=== PATIENT | female | born 1940 | race Caucasian/White ===

== ENCOUNTER 2017-06-15 19:18 | Inpatient (IN) ==
[2017-06-15 20:29] LABS: ALBUMIN 3.2 g/dL (3.5-5.0); CALCIUM 8.1 mg/dL (8.8-10.2); TOTAL BILIRUBIN 0.4 mg/dL (0.20-1.00); TOTAL PROTEIN 6.6 g/dL (6.3-8.3)
[2017-06-15 20:40] LABS: BASO% 0.1 % (0.0-0.8); EOS# 0.01 X1000 (0.0-0.7); EOS% 0.1 % (0.0-10.0); HEMATOCRIT 40.8 % (37.0-47.0); HEMOGLOBIN 13.3 g/dL (12.0-16.0); IMM GRAN# 0.02 X1000 (0.0-0.04); IMM GRAN% 0.2 % (0.0-0.5); LYMPH# 1.31 X1000 (1.2-3.4); LYMPH% 12.7 % (20.5-51.1); MANUAL DIFF NEEDED? NO; MCH 32.2 PG (27-31); MCHC 32.6 g/dL (33-37); MCV 98.8 FL (81-99); MONO# 0.69 X1000 (0.11-0.59); MONO% 6.7 % (1.7-9.3); MPV 10.6 FL (7.4-10.4); NEUT% 80.2 % (42.2-75.2); PLT 185 X1000 (130-400); RBC 4.13 XMIL (4.2-5.4)
[2017-06-15 21:17] LABS: BILIRUBIN URINE NEGATIVE (NEGATIVE); BLOOD URINE TRACE (NEGATIVE); CLARITY SL. CLOUDY (CLEAR); COLOR YELLOW; GLUCOSE URINE NEGATIVE (NEGATIVE); LEUKOCYTES URINE TRACE (NEGATIVE); NITRITE URINE NEGATIVE (NEGATIVE); PROTEIN URINE TRACE mg/dL (NEGATIVE); UROBILINOGEN URINE NORMAL
[2017-06-15 21:27] LABS: URINE SOURCE CATH
[2017-06-15 21:29] LABS: URINE EPITHELIAL CELLS >10 /HPF (<10)
[2017-06-15 21:31] LABS: URINE CAST GRANULAR PRESENT /LPF; URINE CULTURE PL NEEDED? YES; URINE RBC <10 /HPF (<10); URINE WBC <10 /HPF (<10)
[2017-06-15] MEDS ORDERED: NS 1,000 ML IV SCH ×2 (22:32→22:39)
[2017-06-15] MEDS ORDERED: NS 1,000 ML IV ONE (22:37)
[2017-06-15] MEDS ORDERED: ROCEPHIN 1 GM/NS 1 GM/50 ML IVPB IV ONE (22:39)
--- NOTE | 2017-06-15 23:10 | Diag Imaging Result Doc PS360 ---
EXAM: FLAT/UPRIGHT ABD/1 VIEW CHEST HISTORY: Rule out acute abdomen TECHNIQUE: Three views COMPARISON: None. FINDINGS: The lungs are well expanded. No consolidation. No cardiomegaly. There are multiple distended loops of bowel within the abdomen. No free air beneath the diaphragm. No organomegaly. There is scoliosis with degenerative spine changes. IMPRESSION: Bowel obstruction. Electronically signed by Anatoly Bland 06/15/2017 11:08 PM
--- NOTE | 2017-06-16 00:36 | PROVIDER DOCUMENTATION ---
This chart was entered by Stacy King Scribe, acting as scribe for Yony Lew MD. HPI-Abdominal Pain/GI Problem - General Chief Complaint: Nausea/Vomiting Stated Complaint: nausea Time Seen by Provider: 06/15/17 22:31 Source: patient Allergies/Adverse Reactions: Patient Allergies Allergy/AdvReac Type Severity Reaction Status Date / Time ibuprofen AdvReac Unknown Verified 01/04/16 18:40 naproxen sodium * AdvReac Unknown Verified 01/04/16 18:40 [From Aleve] Home Medications: Home Medication List Medication Instructions Recorded Confirmed Last Taken Type Aspirin 325 mg PO DAILY 06/05/15 01/04/16 01/03/16 18:00 History ATORVAstatin [Lipitor] 10 mg PO HS 01/04/16 01/04/16 01/02/16 18:00 History Baclofen 20 mg PO TID 01/04/16 01/04/16 01/04/16 08:00 History Darifenacin Hydrobromide [Enablex] 15 mg PO BID 01/04/16 01/04/16 01/03/16 12: 00 History Levofloxacin [Levaquin] 750 mg PO DAILY #7 tablet 01/04/16 Unknown Rx Metformin E.r. [Glucophage Xr] 500 mg PO HS 01/04/16 01/04/16 01/02/16 18:00 History Topiramate [Topamax] 100 mg PO 4XDAY 01/04/16 01/04/16 01/04/16 12:00 History - History of Present Illness-ABD Nature of Presenting Problems: 76 Y/O F presents to ER with the complain of nausea and vomit X 2 days. pt is not able to hold anything down. Also developed severe abd pain + distention. Lives with her daughter. Is bed bound. Abdominal Pain Onset Location: reports: generalized abdomen Pain Radiation: reports: no radiation Quality of Pain: reports: dull, pressure, sharp Severity in ED: reports: moderate Onset/Duration: reports: 2 days ago, other Timing: reports: still present, constant Activities at Onset: reports: none Exposure to sick contacts?: No Modifying Factors: improves with: nothing Associated Symptoms: reports: nausea, vomiting Last BM: this evening Review of Systems - Adult - REVIEW OF SYSTEMS - ADULT Constitutional: reports: no symptoms reported Eyes: reports: no symptoms reported Ears, Nose, Mouth & Throat: reports: no symptoms reported Cardiovascular: reports: no symptoms reported Respiratory: reports: no symptoms reported Gastrointestinal: reports: abdominal pain, nausea, vomiting Genitourinary: reports: no symptoms reported Musculoskeletal: reports: no symptoms reported Integumentary: reports: no symptoms reported Neurological: reports: no symptoms reported Psychiatric: reports: no symptoms reported Endocrine: reports: no symptoms reported Hematologic/Lymphatic: reports: no symptoms reported Allergic/Immunologic: reports: no symptoms reported All Other Systems: Reviewed and Negative Past History - Adult - PAST MEDICAL HISTORY-ADULT Review of Records: reports: Old Records Reviewed, Nursing Assessment Review Major Childhood Illnesses: reports: denies history Cardiovascular: reports: hyperlipidemia Genitourinary: reports: kidney disease Endocrine/Immune: reports: Diabetes - IMMUNIZATION STATUS Childhood Immunizations: See Nurse Assessment Flu Vaccine: See Nurse Assessment - FAMILY HISTORY Family History: reviewed, not pertinent Physical Exam-General - PHYSICAL EXAM-ADULT Initial Vital Signs Reviewed: Yes - CONSTITUTIONAL General Appearance: appears well, alert - EYES Eyes: PERRL/EOMI, pink conjunctivae - HEAD, EARS, NOSE, MOUTH & THROAT HENMT: moist mucous membranes, normal ENT inspection - NECK Neck: non-tender, full range of motion, supple - RESPIRATORY Respiratory: chest non-tender, lungs clear, normal breath sounds - CARDIOVASCULAR Cardiovascular: normal peripheral pulses, regular rate, rhythm, no edema - GASTROINTESTINAL (ABDOMEN) Abdominal Exam: normal bowel sounds, soft, no organomegaly, no pulsatile mass, distended, rigid, tenderness. negative: non tender, hepatomegaly, spleenomegaly - LYMPHATIC Lymphatic: no adenopathy - MUSCULOSKELETAL Back Exam: normal inspection, no CVA tenderness, no vertebral tenderness Extremity: normal range of motion, non-tender, normal gait - SKIN Integumentary: normal color, normal turgor, warm/dry - NEUROLOGIC Neurologic: grossly normal, no motor/sensory deficits - PSYCHIATRIC Psych/Mental Status: normal mood/affect, normal thought content, normal thought process, oriented x 3 Progress - PLAN OF CARE/RESULTS Progress/Plan/Lab Results: Vital Signs - 8 hr 06/15/17 19:20 06/15/17 21:14 06/15/17 21:30 Temperature 97.4 F L Pulse Rate 103 H 100 H 101 H Respiratory Rate 20 18 20 Blood Pressure 96/69 129/86 105/78 O2 Sat by Pulse Oximetry 93 L 95 93 L 06/15/17 22:48 Temperature Pulse Rate 97 H Respiratory Rate 22 Blood Pressure 109/75 O2 Sat by Pulse Oximetry 93 L Laboratory Results - last 24 hr 06/15/17 06/15/17 06/15/17 19:25 19:25 20:47 WBC 10.32 RBC 4.13 L Hgb 13.3 Hct 40.8 MCV 98.8 MCH 32.2 H MCHC 32.6 L RDW Std Deviation 14.2 Plt Count 185 MPV 10.6 H Immature Gran % (Auto) 0.2 Neut % (Auto) 80.2 H Lymph % (Auto) 12.7 L [place] % (Auto) 6.7 Eos % (Auto) 0.1 Baso % (Auto) 0.1 Immature Gran # (Auto) 0.02 Neut # (Auto) 8.28 H Lymph # (Auto) 1.31 [place] # (Auto) 0.69 H Eos # (Auto) 0.01 Baso # (Auto) 0.01 Sodium 136 Potassium 5.0 Chloride 101 Carbon Dioxide 19 L Anion Gap 16 BUN 55 H Creatinine 1.4 H Estimated GFR/1.73 m2 36 BUN/Creatinine Ratio 39 Glucose 111 H Calculated Osmolality 288 Calcium 8.1 L Total Bilirubin 0.40 AST 15 ALT 8 L Alkaline Phosphatase 53 Total Protein 6.6 Albumin 3.2 L Globulin 3.0 Albumin/Globulin Ratio 1.0 Amylase 25 Lipase 12 L Urine Source CATH Urine Color YELLOW Urine Clarity SL. CLOUDY A Urine pH 5.0 Ur Specific [place] 1.020 Urine Protein TRACE A Urine Ketones 1+(Small) A Urine Blood TRACE Urine Nitrite NEGATIVE Urine Bilirubin NEGATIVE Urine Urobilinogen NORMAL Urine Microscopic RBC <10 Urine WBC TRACE A Urine Microscopic WBC <10 Ur Epithelial Cells >10 A Urine Bacteria NEGATIVE Urine Casts GRANULAR PRESENT Urine Glucose NEGATIVE Orders Category Date Time Status CT ABDOMEN/PELVIS W/O CONTRAST [CT] Stat Exams 06/15/17 23:09 Ordered Chest [CT THORAX W/O CONTRAST] [CT] Stat Exams 06/15/17 23:09 Ordered FLAT/UPRIGHT ABD/1 VIEW CHEST [RAD] Stat Exams 06/15/17 22:42 Completed AMYLASE [CHEM] Stat Lab 06/15/17 19:25 Completed BLOOD CULTURE [BLDCUL] Stat Lab 06/15/17 22:38 Ordered CBC WITH DIFF [HEME] Stat Lab 06/15/17 19:25 Completed COMPREHENSIVE METABOLIC PANEL [CHEM] Stat Lab 06/15/17 19:25 Completed LACTATE, PLASMA [CHEM] Stat Lab 06/15/17 22:59 Received LIPASE [CHEM] Stat Lab 06/15/17 19:[address] W/POSS RFLX CULT [URINALYSIS] Stat Lab 06/15/17 20:47 Completed URINE CULTURE [RM] Routine Lab 06/15/17 21:31 Ordered 0.9% Sodium Chloride Inj [Ns] 1,000 ml Med 06/15/17 22:32 Discontinued IV 75 mls/hr 0.9% Sodium Chloride Inj [Ns] 1,000 ml Med 06/15/17 22:37 Active IV 999 mls/hr 0.9% Sodium Chloride Inj [Ns] 1,000 ml Med 06/15/17 22:39 Active IV Wide Open CefTRIAXONE 1 GM/NS [Rocephin 1 gm/Ns] Med 06/15/17 22:39 Discontinued 1 gm in 50 ml IV NOW Result Diagrams: 06/15/17 19:25 06/15/17 19:25 - XRAY 1 XRAY Study: Chest (Bowl obstrcution with possible RT Mid/LL infiltrate), Abdomen Impression: Abnormal XRAY Interpretation: bowel obstruction by radiologist - CT/MRI 1 MRI Study: Abdomen, Chest Impression: Abnormal - CHANGE OF SHIFT REPORT (ED Provider) Items Pending: CT/MRI Results Departure - Departure Date of Disposition Decision: 06/16/17 Time of Disposition Decision: 00:32 DIAGNOSIS: Abdominal pain in female, Bowel obstruction, Nausea & vomiting DIAGNOSIS: (Ruled Out): Small bowel obstruction Disposition: ADMITTED INPATIENT 09 Certified Medical Emergency: Urgent Condition: Fair Additional Freetext Instructions: Discussed with Dr. Shashi Cisse Hospitalist whom accepted the patient for inpatient services. Discussed adding NG tube - no further surgical interventions requested. Discussed with Daughter and grand-daughter whom agree with the plan to admit to inpatient services. Referrals and Follow-Ups: Oliver Ying MD [Primary Care Provider] - - Critical Care Note This patient required my direct & personal management of CC.: No Attestation - Physician/ ARELIS Attestation Patient care was provided by Advanced Practice Provider:: No The physician spent face to face time with patient:: Yes Advanced Practice Provider documentation review:: Supervising physician onsite and consulted in the evaluation and care of this patient. The physician did have a face to face encounter with the patient. This chart was documented by the indicated scribe, (Stacy King Scribe) and accurately reflects the services I performed and decisions made by me, Yony Lew MD, as attested by the provider's signature.
[2017-06-16] MEDS ORDERED: NS 1,000 ML IV ONE (00:58)
[2017-06-16] MEDS ORDERED: ZOFRAN IV PRN (00:58)
[2017-06-16] MEDS ORDERED: NS 1,000 ML IV SCH (03:05)
[2017-06-16 03:57] LABS: URINE CULTURE NEEDED? NO; URINE SOURCE CATH
[2017-06-16 04:01] LABS: BILIRUBIN URINE NEGATIVE (NEGATIVE); BLOOD URINE NEGATIVE (NEGATIVE); COLOR YELLOW; GLUCOSE URINE NEGATIVE (NEGATIVE); LEUKOCYTES URINE NEGATIVE (NEGATIVE); NITRITE URINE NEGATIVE (NEGATIVE); PH URINE 5.5; PROTEIN URINE 30 mg/dL (NEGATIVE); SP GRAVITY URINE 1.022; TURBIDITY URINE HAZY (CLEAR); UROBILINOGEN URINE 2 mg/dL (NORMAL)
[2017-06-16 04:02] LABS: URINE MICRO REVIEW NEEDED? YES
[2017-06-16 04:06] LABS: UR EPITHELIAL CELLS >10 /HPF (<10); URINE BACTERIA NEGATIVE /HPF; URINE RBC 20-40 /HPF (<10); URINE WBC <10 /HPF (<10)
[2017-06-16] MEDS: ZOSYN 2.25 GM in NS 50 ML IV SCH ×4 (04:13→20:46)
[2017-06-16] MEDS: LOVENOX SUBQ SCH (04:13)
[2017-06-16 04:14] LABS: URINE CASTS NONE SEEN
--- NOTE | 2017-06-16 05:05 | HISTORY AND PHYSICAL ---
CHIEF COMPLAINT: Nausea, vomiting. HISTORY OF PRESENT ILLNESS: This is a 76-year-old female who is at baseline bed-bound. There is no family present on arrival. The patient is oriented to person and aware she is in the hospital. She is disoriented to time and situation. Apparently, she has had nausea and vomiting for the past 2 days. She has also had abdominal pain. However, she does not complain of any abdominal pain at this time. She originally went to the [place] [facility] apparently stating that she had not had a bowel movement in almost 10 days with nausea and vomiting. A CT of the chest, abdomen and pelvis was obtained with IV contrast which showed a small bowel obstruction with a possible right middle lobe infiltrate and she was transported to [facility] for admission. Blood cultures were drawn in the emergency room at [place]. BUN was elevated at 55 and a creatinine of 1.4. She began receiving fluid bolusing and was transferred to [facility]. Patient is a Do Not Resuscitate level 2. She does not want to be intubated. Code status was addressed by the ER provider at [place] and placed in the computer. She will be admitted inpatient status for further evaluation and treatment. PAST MEDICAL HISTORY: 1. Diabetes mellitus type 2. 2. Hyperlipidemia. 3. Hypertension. 4. Essential tremor, central resting tremor. 5. Possible dementia. PREVIOUS SURGICAL HISTORY: Cataract surgery. SOCIAL HISTORY: Lives at home with her daughter, is bed bound. Smokes around a pack of cigarettes per day for many years. Stopped smoking roughly 10 years ago. Denies alcohol or illicit drug use or abuse. FAMILY HISTORY: Was attempted with the patient but she stated there was no significant family history. As noted above she is oriented to person and somewhat to place. No family is present. ALLERGIES: Ibuprofen and naproxen. HOME MEDICATIONS: 1. Aspirin 325 p.o. daily. 2. Baclofen 20 mg p.o. daily t.i.d. 3. Topamax 100 mg p.o. 4 times a day. 4. Lipitor 10 mg p.o. at bedtime. 5. Metformin 500 mg p.o. at bedtime. 6. Enablex 4 mg p.o. daily. REVIEW OF SYSTEMS: Fourteen point review of systems was conducted with the patient. Pertinent positives listed above in the HPI. All other systems were reviewed and found to be negative. However, I am unsure how reliable the patient is and no family is at bedside. PHYSICAL EXAMINATION: VITAL SIGNS: Temp 97.7 degrees, pulse 95, respirations 20, blood pressure 133/86, oxygen saturation 97% on 2 L nasal cannula. GENERAL: A 76-year-old female lying in the ICU bed oriented to person, is aware she is in the hospital. Disoriented to situation and time. No family is present. The patient is not in acute distress. HEENT: Head is a atraumatic, normocephalic. Eyes are noted to be sunken in. Patient has a resting essential tremor of the head. Pupils are equal, round, reactive to light. Extraocular eye movement is intact. Sclerae is anicteric. Conjunctivae is pink. Oral mucosa is dry. NECK: Supple. No JVD. Tenting noted to the skin on the neck. Trachea is midline. CARDIAC: S1-S2 appreciated. No murmurs, gallops, rubs. Regular rhythm. LUNGS: Clear to auscultation bilaterally. No rhonchi, wheezes or rales. Symmetrical rise and fall with respirations. ABDOMEN: Soft, mildly distended, nontender to palpation. Bowel sounds hypoactive all 4 quadrants. EXTREMITIES: No clubbing, cyanosis, or edema. Diminished pedal pulses bilaterally. GENITOURINARY: Manuel catheter will be placed. No bladder distention noted. Otherwise deferred. SKIN: Warm and dry. A stage I pressure ulcer noted to coccyx. Mepilex dressing was in the process of being placed on the patient's coccyx during examination. DIAGNOSTIC DATA: CT of the chest, abdomen and pelvis with contrast showed a small bowel obstruction and a questionable right middle lobe infiltrate. LABORATORY DATA: WBC 10.32, hemoglobin 13.3, hematocrit 40.8, platelet count 185,000. Sodium 136, potassium 5, chloride 101, carbon dioxide 19, BUN 55, creatinine 1.4, glucose 111. Urine unremarkable. ASSESSMENT AND PLAN: 1. Small bowel obstruction. An NG tube will be placed to low intermittent suction. A liter of normal saline was given. We will continue normal saline at 75 mL an hour. Hopeful this will resolve. Otherwise, surgical intervention may be needed at some point. 2. Diabetes mellitus type 2. Check hemoglobin A1c. Hold metformin as patient has acute kidney injury. Check blood sugar before meals and at bedtime. Sliding scale insulin. Do not treat unless greater than 200 as patient is NPO. 3. Questionable right middle lobe pneumonia. The patient has had nausea and vomiting. We will start patient on Zosyn for possible aspiration pneumonia. 4. Hyperlipidemia. Continue Lipitor with sip of water. 5. Hypertension. The patient is not on home antihypertensive and is normotensive at this time. We will monitor. Further recommendation per patient clinical course history. Dictated by AYO Willis for Alireza Trent MD cc: AYO Willis MD Kenneth E. Mashburn, MD
--- NOTE | 2017-06-16 06:30 | Diag Imaging Result Doc PS360 ---
EXAM: CHEST-PORTABLE HISTORY: PLACEMENT CONFIRMATION TECHNIQUE: Portable AP COMPARISON: 06/15/2017 FINDINGS: The lungs are well expanded. The heart is not enlarged. The vessels are not distended. Mild increased interstitial markings in the mid and lower right lung. No pleural effusions identified. IMPRESSION: No interval improvement in the right lung infiltrates. Electronically signed by Anatoly Bland 06/16/2017 6:28 AM
--- NOTE | 2017-06-16 06:32 | Diag Imaging Result Doc PS360 ---
EXAM: CHEST-PORTABLE HISTORY: Confirm NG tube placement TECHNIQUE: Portable AP COMPARISON: 06/16/2017 FINDINGS: A nasogastric tube overlies the esophagus and stomach. The lungs are well expanded. The heart is not enlarged. The vessels are not distended. There are nodular infiltrates in the right lung similar to the prior exam. No pleural effusions identified. IMPRESSION: Interval placement of a nasogastric tube, otherwise stable chest. Electronically signed by Anatoly Bland 06/16/2017 6:30 AM
[2017-06-16] MEDS ORDERED: HUMALOG SUBQ SCH (07:00)
[2017-06-16] MEDS: HUMALOG SUBQ SCH ×4 (07:04→20:30)
[2017-06-16 07:33] LABS: HEMOGLOBIN A1C 5.1 % (4.8-6.0)
--- NOTE | 2017-06-16 08:22 | Diag Imaging Result Doc PS360 ---
EXAM: CT THORAX/ABD/PELVIS W/O CONT INDICATION: rule out SBO vs acute abdomen, possible rt lung infiltrate TECHNIQUE: COMPARISON: None. FINDINGS: CHEST: There is patchy airspace infiltrate throughout the right lung with a vaguely nodular character. This is very likely infectious. Follow-up is recommended to assure clearing, however. There is a small right pleural effusion and dependent atelectasis on the right. The heart is not enlarged. There are a few small calcified lymph nodes mainly in the left hilar region suggesting prior granulomatous disease. There is a small amount of fluid in the esophagus suggesting gastroesophageal reflux. ABDOMEN/PELVIS: There is marked distention of multiple loops of small bowel with air-fluid levels consistent with small bowel obstruction. The transition point appears to be in the right lower quadrant. The stomach is also distended. There is constipation with a rectal fecal impaction. The impacted rectum measures up to 8.4 cm in diameter. There is no extraluminal free gas. There is a small calcified stone layering in the gallbladder. The gallbladder is distended. There is no pericholecystic inflammatory change or definite gallbladder wall thickening. The pancreas is atrophic but is grossly unremarkable, otherwise. There are calcified granulomata in the spleen. The liver is grossly unremarkable. There is significant thickening involving the left adrenal gland most compatible with hyperplasia. There is high dense material in both renal collecting systems indicating nephrolithiasis that is more extensive on the left. There is also nonspecific high dense material that is layering in the urinary bladder. I suppose, that it is possible that the high dense material in the kidneys represents residual contrast if there has been a recent contrast enhanced study from another facility given the layering high dense material in the urinary bladder. Please correlate clinically. There are no ureteral stones and there is no evidence of hydronephrosis. IMPRESSION: 1.Diffuse nodular airspace infiltrate throughout the right lung that likely represents an infectious process. Follow-up is recommended, however. 2.High-grade small bowel obstruction with the transition point in the right lower quadrant. 3.Constipation with a small rectal fecal impaction. 4.Other incidental/nonacute findings detailed above. Electronically signed by Oleksandr Villegas 06/16/2017 8:20 AM
[2017-06-16] MEDS: ASPIRIN PO SCH (09:47)
[2017-06-16] MEDS: TOPAMAX PO SCH ×4 (09:47→20:46)
[2017-06-16] MEDS ORDERED: DULCOLAX PR ONE (10:08)
--- NOTE | 2017-06-16 10:36 | PROGRESS NOTE ---
DATE: 06/16/2017 SUBJECTIVE: Today, Ms. Martínez refers to be doing a little better. Ms. Martínez was admitted yesterday as a transfer from [place]. Apparently, she has been having some nausea and vomiting for the past 2 to 3 days. She resented to the emergency department in [place] and was found to be in some form of some obstruction and was transferred here. OBJECTIVE: Vital Signs: Today blood pressure is 134/92, pulse of 89, respirations 16, and temperature 98.6 degrees. General: Ms. Martínez is a 76-year-old female. She is in bed, does not seem to be in any remarkable distress. HEENT: Mucosa is pink and slightly dry. Anicteric. Acyanotic. Neck: Supple. Chest: Good air entry bilateral. No crepitations. No rhonchi. Cardiovascular: Regular rate and rhythm. Abdomen: Soft and distended. It is tympanic. Bowel sounds are hypoactive. There is a questionable defect on the anterior midline supraumbilical region which looks like a hernia defect. Extremities: No pedal edema. ABSTRACT CLERK: Patient is awake and alert, has consistent rhythmic movement of the head consistent with essential tremor. DIAGNOSTIC: A CT scan of the abdomen and pelvis without contrast which was done shows diffuse nodular airspace infiltrate throughout the right lung that likely represents an infectious process. There is also a high-grade small-bowel obstruction with transition point in the right lower quadrant. There is constipation with small retrocecal impaction. ASSESSMENT: 1. Nausea and vomiting secondary to SBO. Patient has an NG-tube in place and draining adequately. We will consult surgery to be on board just in case patient needs some form of intervention. 2. Constipation with small fecal impaction. We are going to hydrate the patient well. We will put the Dulcolax suppository to see if that will help with bowel movement. 3. Right lung airspace infiltrate on CT scan likely secondary to infectious process versus aspiration. We will continue the patient with the current antibiotics. 4. Diabetes mellitus known. 5. Hypertension stable. 6. Clinical dehydration. We would continue with IV fluids. We will increase the rate to 85 mL/h. 7. Acute kidney injury likely due to dehydration. We will address with IV fluids. So in general, I think Ms. Martínez is relatively stable. We will consult surgery for the SBO. Will continue adequate IV fluids. Will order the Dulcolax suppository for the fecal impaction and manage her other comorbidities. cc: José Miguel Wiseman MD MTDD
[2017-06-16] MEDS: NS 1,000 ML IV SCH ×2 (11:32→16:07)
--- NOTE | 2017-06-16 12:28 | CONSULTATION ---
DATE OF CONSULTATION: 06/16/2017 REQUESTING PHYSICIAN: Dr. Wiseman. REASON FOR CONSULTATION: Consult is concerning bowel obstruction and severe constipation. HISTORY OF PRESENT ILLNESS: A 76-year-old female, whose baseline bed-bound who initially presented with nausea and vomiting x2 days. She also had some report of abdominal pain at time of presentation but apparently does not now. She originally went to [facility] and reported that she did not have a bowel movement in ten days. She had a CT scan done at that time. There is no bowel obstruction and possible pneumonia. She was transferred over to [facility]. She was started on the resuscitation process. Patient is currently a DNR level 2. She does not want to be intubated. She at this point is not in any kind of acute distress, she is not reporting any abdominal pain although she is not significantly for will but she will respond to questions. I discussed her case with Dr. Wiseman, the hospitalist and Dr. Villegas radiologist. PAST MEDICAL HISTORY: 1. Diabetes mellitus type 2. 2. Hyperlipidemia. 3. Hypertension. 4. Essential tremor. 5. Possible dementia. PAST SURGICAL HISTORY: Includes cataract surgery. SOCIAL HISTORY: Lives at home with her daughter but she is bed bound. Former smoker. Denies alcohol, tobacco or illicit drugs. FAMILY HISTORY: Difficult to obtain secondary to patient's mental status. ALLERGIES: Ibuprofen or naproxen. HOME MEDICATIONS: Aspirin, baclofen, Topamax, Lipitor, metformin, and Enablex. REVIEW OF SYSTEMS: Difficult to obtain secondary to patient's mental status. PHYSICAL EXAMINATION: Vital Signs: Patient is currently afebrile. Her vital signs are stable. General: No acute distress. Resting comfortably. She does have what appears to be an essential tremor. HEENT: Normocephalic atraumatic. Pupils equal, round, react to light. Mucous membranes moist. Oropharynx benign. Neck: Supple. Trachea midline. Cardiovascular: Regular rate and rhythm. Lungs: Grossly clear. Abdomen: Soft, mild distention. I have no tenderness to exam. Extremities: No clubbing or cyanosis. Skin: No signs of jaundice. Vascular: All extremities perfused. LABORATORY: Labs from yesterday reviewed. Her BUN and creatinine were [address] scan independently reviewed and reviewed with Dr. Villegas of Radiology. ASSESSMENT AND PLAN: A 76-year-old female with multiple medical comorbidities presenting now with a small-bowel obstruction. 1. Multiple medical comorbidities at this time being managed by the hospitalist service. She is bed-bound and is a DNR level 2. She does not want to be intubated. We will try to manage her nonoperatively overall. 2. Small-bowel obstruction. At this time, Radiology states there is a transition point. She does technically have a reverted abdomen but at this time she does not have any abdominal pain. She has an NG tube in place which is decompressed her GI tract. She does have what appears to be severe constipation and I would like to try multiple enemas to see if we can get this improved somewhat. We will follow her closely. If she does not seem to improve, we may need to consider surgical intervention but again, this would have to be a lengthy discussion with her family about DNR status. 3. I appreciate the consult. cc: Mehdi Santillan MD
[2017-06-16] MEDS ORDERED: D50W SYRINGE IV ONE (20:37)
[2017-06-16] MEDS: LIPITOR PO SCH (20:46)
[2017-06-16] MEDS ORDERED: CALMOSEPTINE OINTMENT TOP PRN (23:22)
[2017-06-17] MEDS: ZOSYN 2.25 GM in NS 50 ML IV SCH ×4 (03:28→20:18)
[2017-06-17] MEDS: LOVENOX SUBQ SCH (03:28)
[2017-06-17] MEDS: NS 1,000 ML IV SCH (03:36)
[2017-06-17] MEDS: HUMALOG SUBQ SCH ×4 (06:10→20:17)
[2017-06-17 06:57] LABS: BASO% 0.2 % (0.0-0.8); EOS# 0.01 X1000 (0.0-0.7); EOS% 0.2 % (0.0-10.0); HEMOGLOBIN 11.9 g/dL (12.0-16.0); IMM GRAN# 0.02 X1000 (0.0-0.04); IMM GRAN% 0.4 % (0.0-0.5); LYMPH# 1.01 X1000 (1.2-3.4); LYMPH% 19.8 % (20.5-51.1); MANUAL DIFF NEEDED? YES; MCH 32.2 PG (27-31); MCHC 31.3 g/dL (33-37); MONO# 0.51 X1000 (0.11-0.59); MPV 10.7 FL (7.4-10.4); NEUT% 69.4 % (42.2-75.2); PLT 161 X1000 (130-400); RBC 3.69 XMIL (4.2-5.4)
[2017-06-17 07:20] LABS: CALCIUM 7.7 mg/dL (8.8-10.2); POTASSIUM 3.8 mmol/L (3.5-5.1)
[2017-06-17 07:25] LABS: BANDS 8 % (0-1); EOS 2 % (1-10); LYMPHS 14 % (21-51); MONO 6 % (1-9)
--- NOTE | 2017-06-17 08:19 | Diag Imaging Result Doc PS360 ---
EXAM: KUB ABDOMEN INDICATION: sbo TECHNIQUE: One view COMPARISON: 06/15/2017 FINDINGS: There is patchy stool throughout the colon but there appears to be less stool in the rectum as compared to the previous study. There is still significantly gas distended loops of small bowel consistent with bowel obstruction. It is essentially stable. There is an NG tube identified with the tip projecting below the diaphragm and assumed to be in the stomach. The abdomen is stable, otherwise. IMPRESSION: 1.Decreased stool in the rectum as compared to previous study. 2.Persistent gas distended loops of small bowel that are similar to the previous study. Electronically signed by Oleksandr Villegas 06/17/2017 8:17 AM
[2017-06-17] MEDS: ASPIRIN PO SCH (08:23)
[2017-06-17] MEDS: TOPAMAX PO SCH ×4 (08:23→20:18)
--- NOTE | 2017-06-17 08:45 | PROGRESS NOTE ---
DATE: 06/17/2017 SUBJECTIVE: The patient did have some bowel movements last night, although they were small, after enema. Her abdominal exam this morning essentially looks like she still has a bowel obstruction, although she does have a significant amount of constipation on my review. Nursing staff reports no major issue. The patient says she wants to go home. OBJECTIVE: Vital signs: The patient is currently afebrile. Her vital signs are stable. General: In no acute distress, resting comfortably in bed. female who looks stated age. She does have an essential tremor. Cardiovascular: Regular rate and rhythm. Lungs: Grossly clear. Abdomen: Soft, less distended overall. NG tube in place with bilious output. Her abdomen does not appear to be tender at this time. LABORATORY: Reviewed. IMAGING: Abdominal films reviewed but radiology report pending. ASSESSMENT AND PLAN: A 76-year-old female with multiple medical comorbidities now with bowel obstruction. 1. Bowel obstruction: At this time, would like to continue with enemas, given the constipation, will keep NG tube in place. Would like to try to follow her closely. I doubt she would be an ideal surgical candidate, and so would like to hold off until absolutely necessary. She has been stable. 2. Multiple medical comorbidities currently being managed by the hospital service. I appreciate the consult. cc: Mehdi Santillan MD
--- NOTE | 2017-06-17 09:42 | PROGRESS NOTE ---
DATE: 06/17/2017 SUBJECTIVE: Ms. Martínez states that she is feeling better, she is not complaining of pain today, she is not passing gas. Surgery Department following this patient closely. We will continue with enema treatment. OBJECTIVE: Vital Signs: Temperature 99.2 degrees, pulse 84, respiratory rate 17, blood pressure 124/87, oxygen saturation 100% on 2 L of nasal cannula. HEENT: Head normocephalic. No trauma. PERRLA. Neck: Supple. No JVD. No masses. Central trachea. Chest: Clear to auscultation. No wheezing, no rales. Cardiovascular: RRR. Abdomen: Soft. It is moderately distended. Tympanic. Bowel sounds present, but decreased. Probably she has a hernia defect above the umbilical scar. Extremities: No edema. No clubbing. No cyanosis. Neurological examination: The patient is alert and oriented x2, not oriented in time. She has tremors mostly at the level of the upper extremities and head. LABORATORY: WBC 5.1, hemoglobin 11.9, hematocrit 38, platelet 161. Sodium 143, potassium 3.8, chloride 106, bicarbonate 18. BUN 43, creatinine 1.1, glucose 71, calcium 7.7. ASSESSMENT AND PLAN: 1. Small bowel obstruction: This patient has a nasogastric tube in place, and the output in the morning for 24 hours was about 650 mL. We will continue with that. Surgery Department following this patient closely. We are trying with enemas to see if that can help. Otherwise, probably we will need to go for surgery, but she is not a good candidate for this. 2. Constipation with small fecal impaction as above. 3. Right lung air space infiltrate on CT scan, likely secondary to infectious process versus aspiration. For now, we will continue this patient with antibiotics, but she is not complaining of shortness of breath or chest pain. No fever, no chills. 4. Type 2 diabetes. Continue with the same management. 5. Hypertension, stable. 6. Acute kidney injury likely prerenal. She is on intravenous fluids, and the BUN and creatinine improved from yesterday. Creatinine yesterday was 1.4; today it is 1.1. On 2015, her creatinine was completely normal. CRITICAL CARE TIME: 35 minutes. cc: Jaison Alcaraz MD
[2017-06-17] MEDS: D5 NS 1,000 ML IV SCH (16:02)
[2017-06-17] MEDS: LIPITOR PO SCH (20:18)
[2017-06-18] MEDS: ZOSYN 2.25 GM in NS 50 ML IV SCH ×4 (03:16→20:26)
[2017-06-18] MEDS: LOVENOX SUBQ SCH (03:17)
[2017-06-18] MEDS: D5 NS 1,000 ML IV SCH (04:48)
[2017-06-18] MEDS: HUMALOG SUBQ SCH ×4 (05:59→21:47)
[2017-06-18 07:36] LABS: MANUAL DIFF NEEDED? NO
[2017-06-18 07:42] LABS: EOS# 0.03 X1000 (0.0-0.7); EOS% 0.5 % (0.0-10.0); HEMATOCRIT 40.8 % (37.0-47.0); HEMOGLOBIN 12.8 g/dL (12.0-16.0); IMM GRAN# 0.02 X1000 (0.0-0.04); IMM GRAN% 0.4 % (0.0-0.5); LYMPH# 1.45 X1000 (1.2-3.4); LYMPH% 26.6 % (20.5-51.1); MCH 32.2 PG (27-31); MCHC 31.4 g/dL (33-37); MCV 102.5 FL (81-99); MONO# 0.44 X1000 (0.11-0.59); MONO% 8.1 % (1.7-9.3); MPV 10.2 FL (7.4-10.4); NEUT% 64.4 % (42.2-75.2); PLT 156 X1000 (130-400); RBC 3.98 XMIL (4.2-5.4)
[2017-06-18 07:58] LABS: AGAP 18; BUN 25 mg/dL (8-22); CALCIUM 8.7 mg/dL (8.8-10.2); CHLORIDE 108 mmol/L (98-107); COSMO 301; POTASSIUM 3.4 mmol/L (3.5-5.1); SODIUM 148 mmol/L (136-145); TCO2 22 mmol/L (25-35)
[2017-06-18] MEDS: TOPAMAX PO SCH ×4 (08:11→21:47)
[2017-06-18] MEDS: ASPIRIN PO SCH (08:11)
--- NOTE | 2017-06-18 08:12 | PROGRESS NOTE ---
DATE: 06/18/2017 SUBJECTIVE: The patient is about the same. She did have some small bowel movements with enemas. Her abdominal exam is essentially unchanged. Her NG tube output has decreased and she only had 250 approximately out in the last 8 hours. OBJECTIVE: Vital Signs: Patient is currently afebrile. Her vital signs are stable. General Examination: No acute distress. Resting comfortably in bed. female, looks stated age. She does have an essential tremor. HEENT: Normocephalic, atraumatic. Pupils equally round and react to light. Mucous membranes moist. Oropharynx benign. Neck: Supple. Trachea midline. Cardiovascular: Regular rate and rhythm. Lungs: Grossly clear. Abdomen: Soft, mildly distended. I do auscultate bowel sounds. NG tube in place. Her abdomen does not appear tender at this time. Extremities: Moves all extremities. Neurologic: Essential tremor. Skin: No signs of jaundice. Vascular: All extremities perfused. Laboratory: None for this morning. Abdominal film this morning is pending. ASSESSMENT/PLAN: A 76-year-old, female with multiple medical comorbidities, now with bowel obstruction. 1. Bowel obstruction. At this time, I would like to continue with enemas given her severe constipation all the way to her cecum. Her NG tube is in place but its output is decreasing. If it continues to decrease, may start something like GoLYTELY prep down her NG tube to see if we can break up the constipation. Overall, I do not think she is an ideal surgical candidate and given the fact that she has remained stable, I would like to continue just nonoperative management, especially in the setting where she has significant constipation. 2. Multiple medical comorbidities currently being managed by the hospitalist service. cc: Mehdi Santillan MD
--- NOTE | 2017-06-18 08:28 | Diag Imaging Result Doc PS360 ---
EXAM: FLAT/UPRIGHT ABD/1 VIEW CHEST INDICATION: Follow up small bowel obstruction TECHNIQUE: 3 views COMPARISON: 06/17/2017 FINDINGS: The gaseous distention of small bowel seen on the previous study indicating obstruction is perhaps marginally worse. The NG tube is in stable position. There is no evidence of large volume free abdominal gas. There is stable patchy stool throughout the colon. The right lung nodular opacities may have improved somewhat during the interval. No new consolidation is appreciated. Cardiac silhouette is stable. IMPRESSION: 1.Suggestion of marginal worsening of gaseous distention of small bowel. 2.Apparent improvement of the vague nodular infiltrate in the right lung. Electronically signed by Oleksandr Villegas 06/18/2017 8:26 AM
[2017-06-18] MEDS: D5W 1,000 ML IV SCH (08:52)
[2017-06-18] MEDS: CLINIMIX E 4.25%-5% SOLUTION 1,000 ML IV SCH (08:53)
--- NOTE | 2017-06-18 09:15 | PROGRESS NOTE ---
DATE: 06/18/2017 SUBJECTIVE: This patient states that she is feeling fine. She is not complaining of pain. She is not passing gas. Surgery department is following this patient closely. She is having hypernatremia today so I will switch the IV fluids to D5 W and I will start this patient on Clinimix as well. I have stopped her p.o. medications and her Topamax will be on hold. OBJECTIVE: Vital Signs: Temperature 97.6 degrees, pulse 90, respiratory rate 17, blood pressure 145/87, oxygen saturation 99 on room air. HEENT: Head normocephalic. No trauma. PERRLA. Neck: Supple. No JVD. No masses. Central trachea. Chest: Clear to auscultation. No wheezing. No rales. Cardiovascular: RRR. Abdomen: Soft. Moderately distended. Tympanic bowel sounds present but decreased. Probably, she has a hernia defect above the umbilical scar. Extremities: No edema. No clubbing. No cyanosis. Neurological Examination: The patient is alert and oriented x2. Not oriented in time. She has tremors, mostly at the level of the upper extremities and head. Laboratory: WBC 5.4, hemoglobin 12.8, hematocrit 40.8, platelets 156,000. Sodium 148, potassium 3.4, chloride 108, bicarbonate 22, BUN 25, creatinine 0.9, glucose 146, calcium 8.7. ASSESSMENT AND PLAN: 1. Small bowel obstruction. This patient has a nasogastric in place. She continues to have output but apparently is less than yesterday. Surgery department is following this patient closely. 2. Constipation with fecal impaction, as above. 3. Right lung airspace infiltrate on CT scan, likely secondary to infectious process versus aspiration. For now, we will continue this patient with antibiotics even though she is not complaining of shortness of breath or chest pain or cough. No fever. No chills. 4. Hypernatremia. I will switch her intravenous fluids to D5 W and I will start also this patient on Clinimix. I will repeat a new BMP today at 4 p.m. 5. Type 2 diabetes. Continue with the same management. Apparently, she had some episodes of hypoglycemia yesterday but that has been corrected. 6. Hypertension, stable. 7. Acute kidney injury, likely prerenal, resolved. 8. Hypokalemia. For now, I will check a BMP today again at 4 p.m. If the potassium is still low, I will replace the potassium. I had a conversation with Dr Santillan, surgery department, this patient's obstruction is not better, probably she will need surgery, apparently the family /patient don't want surgical intervention, as per the nurse they will ask for home with hospice, hopefully tomorrow we can talk to the patient and family again, and involve social work administrator CRITICAL CARE TIME: 35 minutes. cc: Jaison Alcaraz MD MTDD
[2017-06-18 16:22] LABS: AGAP 12; BUN 24 mg/dL (8-22); CALCIUM 8.4 mg/dL (8.8-10.2); CHLORIDE 109 mmol/L (98-107); COSMO 299; POTASSIUM 3.7 mmol/L (3.5-5.1); SODIUM 146 mmol/L (136-145); TCO2 25 mmol/L (25-35)
[2017-06-19] MEDS: LOVENOX SUBQ SCH (03:36)
[2017-06-19] MEDS: ZOSYN 2.25 GM in NS 50 ML IV SCH ×2 (03:37→09:50)
[2017-06-19] MEDS: D5W 1,000 ML IV SCH (03:38)
--- NOTE | 2017-06-19 06:54 | PROGRESS NOTE ---
DATE: 06/19/2017 I had a lengthy discussion with the family and the patient. They do not want to pursue surgical intervention. This was done yesterday after seeing that her abdominal film was not improving if not getting slightly worse. The family still at this time, after discussing with the patient herself, does not want surgery. At this time, I will sign off and be available if needed. cc: Mehdi Santillan MD
[2017-06-19] MEDS: HUMALOG SUBQ SCH ×2 (07:39→10:38)
[2017-06-19] MEDS: CLINIMIX E 4.25%-5% SOLUTION 1,000 ML IV SCH (09:51)
[2017-06-19 11:31] VITALS: BP 132/86
[2017-06-19] MEDS ORDERED: LEVOPHED 8 MG in D5 1/2 NS 250 ML IV SCH (14:00)
[2017-06-19] MEDS ORDERED: MORPHINE IV PRN (14:27)
[2017-06-19] MEDS ORDERED: ATIVAN IV PRN (14:28)
--- NOTE | 2017-06-29 08:48 | DISCHARGE SUMMARY ---
ADMISSION DATE: 06/16/2017 DISCHARGE DATE: 06/19/2017 FINAL DISCHARGE DIAGNOSES: 1. Small bowel obstruction. 2. Pneumonia. 3. Hypernatremia. 4. Diabetes mellitus type 2. 5. Acute kidney injury. 6. Hypertension. CONSULTATIONS REQUESTED DURING THIS HOSPITAL STAY: General Surgery consultation with Dr. Snatillan. HOSPITAL COURSE: Ms. Martínez is a 76-year-old female with a history of multiple medical problems, who presented with persistent nausea and vomiting. A CT of the chest, abdomen, and pelvis was done while the patient was in the ER that revealed a small bowel obstruction with possible pneumonia. The patient was admitted to the hospitalist service and General Surgery was consulted. An NG tube was placed to low intermittent suction and conservative management was initiated, along with antibiotics and IV fluids. Despite conservative management, the patient's obstruction did not resolve and surgery was discussed with the patient and her family; however, the patient stated that she did not want have surgery done and opted to be made a DNR level 1. On 06/19/2017 at 15:38, the patient was pronounced . The patient's family was notified of the patient's . cc: Renetta Spain MD
== END 2017-06-19 15:38 | disposition expired ==
LOC: P.ED 19:18 → SUATTDRO 06-16 01:12 → ICU 06-16 01:12
PROVIDERS: ATTEND Internal Medicine